=== PATIENT | male | born 1985 | race Two or more races ===

== ENCOUNTER 2021-04-30 08:13 | Emergency (ER) | payer BC, MEDICAID, OTHER ==
[~2021-04-30] VITALS: Ht 177.8 cm; Wt 68.0 kg
--- NOTE | 2021-04-30 09:19 | NUR ---
ERMD at bedside. Pt is ambulatory with stable gait. [id number], wearing a sling on L arm RA, kept comfortable
[2021-04-30] MEDS ORDERED: predniSONE 20 MG TABLET PO ONE (09:30)
[2021-04-30] MEDS ORDERED: LORA10TA7 PO (09:34)
[2021-04-30] MEDS ORDERED: CETI-90 PO (09:34)
[2021-04-30] MEDS ORDERED: PRED50TA PO (09:34)
[2021-04-30] MEDS ORDERED: predniSONE 20 MG TABLET ONE (09:46)
--- NOTE | 2021-04-30 10:33 | NUR ---
Pt still waiting for blood draw, called lab and they stated they will send someone.
[2021-04-30 10:47] LABS: HEMATOCRIT 45.2 % (36.7-47.1); MEAN CORPUSCULAR HEMOGLOBIN 28.9 uug (23.8-33.4); PLATELET COUNT (AUTO) 401 K/uL (152-348)
--- NOTE | 2021-04-30 10:52 | NUR ---
Patient discharged to home in stable condition. Written and verbal after care instructions given. Patient verbalizes understanding of instructions. Stressed follow up or return to ER for worsening s/s.
[2021-04-30 10:53] VITALS: BP 126/77
[2021-04-30 11:09] LABS: BILIRUBIN,TOTAL 0.4 mg/dL (0.2-1.0); CREATININE 0.8 mg/dL (0.6-1.3); POTASSIUM 4.3 mmol/L (3.5-5.1); TOTAL PROTEIN, SERUM 8.5 g/dL (6.4-8.2)
== END 2021-04-30 10:53 | disposition home or self-care (01) ==
LOC: ER 08:15
DX: L20.9 Atopic dermatitis, unspecified (principal); F17.200 Nicotine dependence, unspecified, uncomplicated
CPT/HCPCS: 36415; 80053; 85025; 86592; 99283; J7512; A4663